=== PATIENT | female | born 1940 | race Caucasian/White ===

== ENCOUNTER 2024-09-30 12:51 | Emergency (ER) | payer MEDICARE ==
[~2024-09-30] VITALS: Ht 160 cm; Wt 98.4 kg
[2024-09-30 13:04] VITALS: TEMP 97.9
[2024-09-30 13:16] VITALS: PULSE 72; RESP 25; O2SAT 98
[2024-09-30] MEDS ORDERED: SODIUM CHLORIDE FLUSH 10 ML SYR IV PRN (13:45)
[2024-09-30 13:51] LABS: BASOPHILS % 0.4 % (0.0-1.0); EOSINOPHILS # (AUTO) 0.2 (0.0-0.4); EOSINOPHILS % 3.5 % (0.0-6.0); HEMATOCRIT 37.2 % (34.2-44.1); HEMOGLOBIN 11.8 g/dL (12.0-16.0); LYMPHOCYTES # (AUTO) 1.9 (1.0-3.2); LYMPHOCYTES % 37.3 % (18.0-39.1); MEAN CORPUSCULAR HEMOGLOBIN 28.5 pg (28-32); MEAN CORPUSCULAR HGB CONC 31.7 g/dL (31-35); MEAN CORPUSCULAR VOLUME 89.9 fL (81-99); MONOCYTES # (AUTO) 0.6 (0.2-0.8); MONOCYTES % 12.6 % (4.4-11.3); NEUTROPHILS # (AUTO) 2.3 (2.1-6.9); PLATELET COUNT 175 x10e3/uL (140-360); RED BLOOD COUNT 4.14 x10e6/uL (3.6-5.1); RED CELL DISTRIBUTION WIDTH 13.8 % (11.7-14.4); WHITE BLOOD COUNT 5.09 x10e3/uL (4.8-10.8)
[2024-09-30 14:08] LABS: ALBUMIN 3.5 g/dL (3.5-5.0); ALBUMIN/GLOBULIN RATIO 1.2 (0.8-2.0); ANION GAP 13.6 mmol/L (8-16); BILIRUBIN,TOTAL 0.3 mg/dL (0.2-1.2); CALCIUM 9.4 mg/dL (8.4-10.2); CREATININE, SERUM 1.01 mg/dL (0.57-1.11); POTASSIUM 3.6 mmol/L (3.5-5.1); TOTAL PROTEIN 6.5 g/dL (6.5-8.1)
[2024-09-30 14:19] LABS: TROPONIN I 0.003 ng/mL (0-0.300)
== END 2024-09-30 17:19 | disposition home or self-care (01) ==
LOC: ER 13:17
DX: R60.9 Edema, unspecified (principal); I16.0 Hypertensive urgency; R26.89 Other abnormalities of gait and mobility; R94.31 Abnormal electrocardiogram [ECG] [EKG]
CPT/HCPCS: 36415; 70450; 80053; 83880; 84484; 85025; 93005; 93970; 99284

== ENCOUNTER 2025-06-08 12:08 | Emergency (ER) | payer MEDICARE ==
[~2025-06-08] VITALS: Ht 160 cm; Wt 98.4 kg
[2025-06-08 13:03] LABS: BASOPHILS % 0.3 % (0.0-1.0); EOSINOPHILS % 2.1 % (0.0-6.0); LYMPHOCYTES % 47.7 % (18.0-39.1); MONOCYTES % 11.1 % (4.4-11.3); NEUTROPHILS % 38.5 % (38.7-80.0); RED CELL DISTRIBUTION WIDTH 14.6 % (11.7-14.4)
[2025-06-08 13:15] LABS: EST GLOMERULAR FILTRATION RATE 54.0 ML/MIN (>=60)
[2025-06-08] MEDS ORDERED: HYDRALAZINE HCL10 MG PO (14:53)
[2025-06-08] MEDS ORDERED: DOXYCYCLINE HY100 MG PO (14:54)
[2025-06-08 15:08] VITALS: PULSE 79; RESP 21; TEMP 97.4; O2SAT 99
== END 2025-06-08 15:25 | disposition home or self-care (01) ==
LOC: ER 12:30
DX: I10 Essential (primary) hypertension (principal); R60.9 Edema, unspecified; R51.9 Headache, unspecified; I50.9 Heart failure, unspecified; I48.91 Unspecified atrial fibrillation; N32.81 Overactive bladder; M54.9 Dorsalgia, unspecified; G89.29 Other chronic pain
CPT/HCPCS: 36415; 80053; 83880; 84484; 85025; 93005; 99284